=== PATIENT | female | born 1985 | race Caucasian/White ===

== ENCOUNTER 2016-05-23 06:02 | Emergency (ER) | payer OTHER ==
[2016-05-23 06:19] VITALS: BP 115/74; TEMP 98.7; BMI 29.2
[2016-05-23 06:40] LABS: URINE APPEARANCE CLOUDY; URINE BILIRUBIN NEGATIVE (NEGATIVE); URINE COLOR LT. YELLOW; URINE GLUCOSE (UA) NEGATIVE (NEGATIVE); URINE KETONE NEGATIVE (NEGATIVE); URINE LEUK ESTERASE NEGATIVE (NEGATIVE); URINE NITRITE NEGATIVE (NEGATIVE); URINE UROBILINOGEN 0.2 E.U/dl E.U./dl (0.2-1.0)
[2016-05-23 06:50] LABS: URINE BLOOD 3+ (NEGATIVE); URINE PROTEIN 2+ (NEGATIVE)
--- NOTE | 2016-05-23 08:10 | PDOC ---
History of Present Illness - General Chief Complaint: Vaginal Sxs Stated Complaint: VAGINAL PAIN Time Seen by Provider: 05/23/16 07:54 History Source: Patient Exam Limitations: No Limitations - History of Present Illness Initial Comments: CHIEF COMPLAINT: 30 y/o afebrile female with no significant PMH c/o dysuria, urinary frequency and vaginal discharge for the past 2 days. HISTORY OF PRESENT ILLNESS: The patient also admits to hematuria and states she 's had a faint yellow vaginal discharge. She also admits to lower abdominal pain and some back pain as well. She denies f/c, n/v/d, CP, SOB. Vital signs on arrival are within normal limits. REVIEW OF SYSTEMS: GENERAL/CONSTITUTIONAL: No fever/chills. No weakness. No weight change. HEAD, EYES, EARS, NOSE AND THROAT: No change in vision. No ear pain or discharge. No sore throat. CARDIOVASCULAR: No chest pain or shortness of breath. RESPIRATORY: No cough, wheezing, or hemoptysis. GASTROINTESTINAL: +abd pain. No nausea, vomiting, diarrhea. GENITOURINARY: +dysuria, hematuria, increased urinary frequency. + yellow vaginal discharge. MUSCULOSKELETAL: No joint or muscle swelling or pain. No neck pain. +back pain SKIN: No rash or easy bruising. NEUROLOGIC: No headache, vertigo, loss of consciousness, or loss of sensation. PHYSICAL EXAM: GENERAL: The patient is awake, alert, and fully oriented, in no acute distress. She appears uncomfortable. HEAD: Normal with no signs of trauma. ENT: Pupils equal, round and reactive to light, extraocular movements intact, sclera anicteric, conjunctiva clear. Neck supple. LUNGS: Clear to auscultation bilaterally. Normal excursion. No respiratory distress or use of accessory muscles. CV: RRR, S1/S2, no MRG. Cap refill < 2 sec. ABDOMEN: Soft, non-distended, suprapubic and left flank TTP. BACK: Left CVA TTP. VAGINAL: Normal vaginal exam without any abnormal discharge or bleeding. No lesions. Os closed. EXTREMITIES: Normal range of motion, no edema. NEUROLOGICAL: Normal speech, normal gait. CN II-XII grossly intact. PSYCH: Normal mood, normal affect. SKIN: Warm, dry, normal turgor, no rashes or lesions noted. Past History - Past Medical History Allergies/Adverse Reactions: Allergies Allergy/AdvReac Type Severity Reaction Status Date / Time No Known Allergies Allergy Verified 05/23/16 06:18 Home Medications: Ambulatory Orders Ibuprofen 800 mg PO TID #20 tablet 05/23/16 Asthma: No Cancer: No Cardiac Disorders: No Diabetes: No HTN: No Seizures: No Thyroid Disease: No - Surgical History Abdominal Surgery: Yes - Reproductive History (#): 3 Para: 2 Cervical CA: No Dysfunctional Uterine Bleeding: No Ectopic : No Endometrial CA: No Polycystic Ovaries: No Therapeutic (s) & number: No Tubal Ligation: No Spontaneous : 0 - Immunization History Immunization Up to Date: Yes - Psycho/Social/Smoking Cessation Hx Suicidal Ideation: No Smoking History: Never smoked Have you smoked in the past 12 months: No Information on smoking cessation initiated: No Hx Alcohol Use: No Drug/Substance Use Hx: No Substance Use Type: None Hx Substance Use Treatment: No *Physical Exam - Vital Signs Last Vital Signs Temp Pulse Resp BP Pulse Ox 98.7 F 85 20 115/74 98 05/23/16 06:18 05/23/16 06:18 05/23/16 06:18 05/23/16 06:18 05/23/16 06:18 ED Treatment Course - LABORATORY CBC & Chemistry Diagram: 05/23/16 09:30 05/23/16 09:30 - ADDITIONAL ORDERS Additional order review: Laboratory Results 05/23/16 06:25 Urine Color Lt. yellow Urine Appearance Cloudy Urine pH 6.0 D Ur Specific Ehrenberg >= 1.030 Urine Protein 2+ H Urine Glucose (UA) Negative Urine Ketones Negative Urine Blood 3+ H Urine Nitrite Negative Urine Bilirubin Negative Urine Urobilinogen 0.2 e.u/dl Ur Leukocyte Esterase Negative Urine HCG, Qual Negative Medical Decision Making - Medical Decision Making A/P: 30 y/o afebrile female with UTI vs kidney stone vs pyelo. Plan is as follows: 1. UA/hcg 2. labs 3. IV fluids 4. IV toradol 5. Renal ultrasound UA with 2+ blood. Labs unremarkable No sign of UTI Vaginal exam unremarkable The patient states she does feel better. Renal Ultrasound IMPRESSION: No evidence of nephrolithiasis, hydronephrosis or acute pathology. Will discharge to home with rx for ibuprofen. Suggested she drink plenty of water and cranberry juice. Instructed her that if her urine culture comes back positive we will call her out an antibiotic. Pt instructed to return to the ER with any worsening or concerning symptoms. The patient verbalizes understanding of all instructions, has no further questions and is awaiting discharge. *DC/Admit/Observation/Transfer Diagnosis at time of Disposition: Abdominal pain Qualifiers: Abdominal location: generalized Qualified Code(s): R10.84 - Generalized abdominal pain - Discharge Dispostion Disposition: HOME Condition at time of disposition: Improved - Referrals Referrals: Brett Woodson MD [Staff Physician] - Call tomorrow - Patient Instructions Printed Discharge Instructions: DI for Abdominal Pain-Adult Additional Instructions: Discharge Instructions: -If your urine culture comes back positive we will call you out an antibiotic -Take 600mg of Ibuprofen every 6 hours with food for pain -Drink plenty of water and cranberry juice -Follow up with your doctor within 1 week -Return to the ER with any worsening or concerning symptoms Print Language: SINHALA
[2016-05-23] MEDS ORDERED: SODIUM CHLORIDE 1,000 ML IV STA (08:49)
[2016-05-23] MEDS ORDERED: KETOROLAC TROMETHAMINE 30 MG/1 ML VIAL IVPUSH ONE (08:49)
[2016-05-23] MEDS ORDERED: KETOROLAC TROMETHAMINE 30 MG/1 ML VIAL ONE (09:08)
[2016-05-23 10:05] LABS: BASOPHIL 0.6 % (0-2.0); EOSINOPHIL 1.1 % (0-4.5); MCH 30.5 pg (25.7-33.7); MCHC 33.6 g/dl (32.0-36.0); MEAN CELL VOLUME 90.8 fl (80-96); MEAN PLT VOLUME 9.1 fl (7.5-11.1); NEUTROPHILS 67.8 % (42.8-82.8); PLATELET COUNT 216 K/MM3 (134-434); RDW 12.8 % (11.6-15.6); WHITE BLOOD COUNT 10.2 K/mm3 (4.0-10.0)
[2016-05-23 10:14] LABS: ALBUMIN 4.1 g/dl (3.4-5.0); ANION GAP 7 (8-16); BILIRUBIN,TOTAL 0.6 mg/dL (0.2-1.0); CALCIUM 8.5 mg/dL (8.5-10.1); CO2 25 mmol/L (21-32); CREATININE 0.4 mg/dL (0.55-1.02); GLUCOSE,RANDOM 90 mg/dL (74-106); SGOT/AST 21 U/L (15-37); SGPT/ALT 30 U/L (12-78); TOT PROT 7.7 g/dl (6.4-8.2)
[2016-05-23 10:15] LABS: ALK PHOS 97 U/L (45-117)
[2016-05-23 12:35] VITALS: PULSE 68
== END 2016-05-23 12:35 | disposition home or self-care (01) ==
LOC: JER 06:02
PROC: 3E0333Z Introduction of Anti-inflammatory into Peripheral Vein, Percutaneous Approach (ICD-10-PCS; principal; 2016-05-23)
PROC: 3E0337Z Introduction of Electrolytic and Water Balance Substance into Peripheral Vein, Percutaneous Approach (ICD-10-PCS; 2016-05-23)
DX: R10.84 Generalized abdominal pain (principal)
CPT/HCPCS: 36415; 76775-TC; 80053; 81003; 81015; 84703; 85025; 87086; 96361; 96374; 99283-25

== ENCOUNTER 2017-01-22 19:34 | Emergency (ER) | payer OTHER ==
[2017-01-22 19:46] VITALS: BP 111/79; PULSE 53; TEMP 98.4; BMI 25.0
[2017-01-22] MEDS ORDERED: KETOROLAC TROMETHAMINE 30 MG/1 ML VIAL IVPUSH ONE (21:38)
[2017-01-22] MEDS ORDERED: SODIUM CHLORIDE 0.9% 1000 ML INFUS.BAG IV ONE (21:38)
[2017-01-22] MEDS ORDERED: METOCLOPRAMIDE HCL INJECTION 10 MG/2 ML VIAL IVPB ONE (21:38)
--- NOTE | 2017-01-22 21:41 | PDOC ---
History of Present Illness - General Chief Complaint: Headache Stated Complaint: DIZZINESS Time Seen by Provider: 01/22/17 20:57 - History of Present Illness Initial Comments: 01/22/17 21:40 CHIEF COMPLAINT: vomiting, headache HISTORY OF PRESENT ILLNESS: 31 yo F with no PMH presents to ED with headache and vomiting x 1 day. Patient reports that she ate some seafood yesterday and then went for a walk. Afterwards she had 4 episodes of vomiting and she had 12 episodes of vomiting today and states she "feels very weak." PAST MEDICAL HISTORY: Denies past medical history FAMILY HISTORY: Denies SOCIAL HISTORY: Denies tobacco, alcohol, illicit drug use. SURGICAL HISTORY: Denies ALLERGIES: No known drug allergies REVIEW OF SYSTEMS General/Constitutional: Denies fever or chills. Denies weakness. HEENT: Denies change in vision. Denies ear pain or discharge. Denies sore throat. Cardiovascular: Denies chest pain or shortness of breath. Respiratory: Denies cough, wheezing, or hemoptysis. Gastrointestinal: Persistent vomiting x 2 days. Denies diarrhea or constipation. Denies rectal bleeding. Genitourinary: Denies dysuria, frequency, or change in urination. Musculoskeletal: Denies joint or muscle swelling or pain. Denies neck or back pain. Skin and breasts: Denies rash or easy bruising. Neurologic: Headache x 2 days. Denies vertigo, loss of consciousness, or loss of sensation. PHYSICAL EXAM General Appearance: Weak-appearing, appropriately dressed. No apparent distress. HEENT: Photophobia. EOMI, PERRLA. No conjunctival pallor. Respiratory/Chest: Lungs CTAB. Cardiovascular: RRR. S1, S2. Gastrointestinal/Abdominal: Normal bowel sounds. Abdomen soft, non-distended. No tenderness or rebound tenderness. No organomegaly, pulsatile mass, guarding , hernia, hepatomegaly, splenomegaly. Musculoskeletal/Extremities: Normal inspection. FROM of all extremities, normal capillary refill. Pelvis Stable. No CVA tenderness. No tenderness to extremities, pedal edema, swelling, erythema or deformity. Integumentary: Appropriate color, dry, warm. No cyanosis, erythema, jaundice or rash Neurologic: consulting solution manager II-XII intact. Fully oriented, alert. Appropriate mood/affect. Motor strength 5/5. No appreciable EOM palsy, facial droop or sensory deficit. Past History - Past Medical History Allergies/Adverse Reactions: Allergies Allergy/AdvReac Type Severity Reaction Status Date / Time No Known Allergies Allergy Verified 01/22/17 23:22 Home Medications: Ambulatory Orders Ibuprofen 800 mg PO TID #20 tablet 05/23/16 Ondansetron [Zofran *Odt*] 8 mg SL TID #21 od.tablet 01/23/17 Asthma: No Cancer: No Cardiac Disorders: No Diabetes: No HTN: No Seizures: No Thyroid Disease: No - Surgical History Abdominal Surgery: Yes - Reproductive History (#): 3 Para: 2 Cervical CA: No Dysfunctional Uterine Bleeding: No Ectopic : No Endometrial CA: No Polycystic Ovaries: No Therapeutic (s) & number: No Tubal Ligation: No Spontaneous : 0 - Immunization History Immunization Up to Date: Yes - Psycho/Social/Smoking Cessation Hx Suicidal Ideation: No Smoking History: Never smoked Have you smoked in the past 12 months: No Information on smoking cessation initiated: No Hx Alcohol Use: No Drug/Substance Use Hx: No Substance Use Type: None Hx Substance Use Treatment: No *Physical Exam - Vital Signs Last Vital Signs Temp Pulse Resp BP Pulse Ox 98.4 F 53 L 19 111/79 100 01/22/17 19:43 01/22/17 19:43 01/22/17 19:43 01/22/17 19:43 01/22/17 19:43 ED Treatment Course - LABORATORY CBC & Chemistry Diagram: 01/22/17 22:41 01/22/17 22:41 Medical Decision Making - Medical Decision Making 01/22/17 23:23 31 yo F with no PMH presents to ED with headache and vomiting x 1 day. -CBC, CMP, lipase -UA, UCx, Upreg -IVF, Toradol, Benadryl, Reglan Labs unremarkable. *DC/Admit/Observation/Transfer Diagnosis at time of Disposition: Headache Qualifiers: Headache type: unspecified Headache chronicity pattern: unspecified pattern Intractability: not intractable Qualified Code(s): R51 - Headache Vomiting Qualifiers: Vomiting type: unspecified Vomiting Intractability: non-intractable Nausea presence: with nausea Qualified Code(s): R11.2 - Nausea with vomiting, unspecified - Discharge Dispostion Disposition: HOME Condition at time of disposition: Improved Admit: No - Prescriptions Prescriptions: Ondansetron [Zofran *Odt*] 8 mg SL TID #21 od.tablet - Referrals Referrals: Katelyn Capone MD [Staff Physician] - - Patient Instructions Printed Discharge Instructions: DI for Migraine, DI for Vomiting -- Adult Additional Instructions: Please take medication as prescribed. Follow up with a primary care doctor by the end of the week for continued monitoring. If you experience any sudden, sharp headache, any changes in vision, persistent vomiting, fever, chills, or any new or worsening symptoms, please return to the ER. Por favor, tome la medicacin segn lo prescrito. Siga un mdico de atencin primaria al final de la semana para el seguimiento continuo. Si experimenta alg n dolor de denilson repentino y tin, cualquier cambio en la visin, vmitos persistentes, fiebre, escalofros o cualquier nuevo o empeoramiento de los s ntomas, por favor regrese a la oseas de emergencias.
[2017-01-22] MEDS ORDERED: ONDANSETRON 4 MG/2 ML VIAL IVPB ONE (21:43)
--- NOTE | 2017-01-22 22:26 | PDOC ---
*Physical Exam - Vital Signs Last Vital Signs Temp Pulse Resp BP Pulse Ox 98.4 F 53 L 19 111/79 100 01/22/17 19:43 01/22/17 19:43 01/22/17 19:43 01/22/17 19:43 01/22/17 19:43 ED Treatment Course - LABORATORY CBC & Chemistry Diagram: 01/22/17 22:41 01/22/17 22:41 Medical Decision Making - Medical Decision Making 01/22/17 22:26 agree with care from SAW FILER Mariel *DC/Admit/Observation/Transfer Diagnosis at time of Disposition: Head ache, Vomiting - Discharge Dispostion Disposition: HOME Condition at time of disposition: Improved - Prescriptions Prescriptions: Ondansetron [Zofran *Odt*] 8 mg SL TID #21 od.tablet - Referrals Referrals: Katelyn Capone MD [Staff Physician] - - Patient Instructions Printed Discharge Instructions: DI for Migraine, DI for Vomiting -- Adult Additional Instructions: Please take medication as prescribed. Follow up with a primary care doctor by the end of the week for continued monitoring. If you experience any sudden, sharp headache, any changes in vision, persistent vomiting, fever, chills, or any new or worsening symptoms, please return to the ER. Por favor, tome la medicacin segn lo prescrito. Siga un mdico de atencin primaria al final de la semana para el seguimiento continuo. Si experimenta alg n dolor de denilson repentino y tin, cualquier cambio en la visin, vmitos persistentes, fiebre, escalofros o cualquier nuevo o empeoramiento de los s ntomas, por favor regrese a la oseas de emergencias.
[2017-01-22] MEDS ORDERED: METOCLOPRAMIDE HCL INJECTION 10 MG/2 ML VIAL ONE (22:50)
[2017-01-22] MEDS ORDERED: KETOROLAC TROMETHAMINE 30 MG/1 ML VIAL ONE (22:50)
[2017-01-22] MEDS ORDERED: ONDANSETRON 4 MG/2 ML VIAL ONE (22:51)
[2017-01-22 23:16] LABS: BASOPHIL 0.6 % (0-2.0); EOSINOPHIL 0.4 % (0-4.5); MCH 30.7 pg (25.7-33.7); MEAN CELL VOLUME 90.3 fl (80-96); MEAN PLT VOLUME 9.2 fl (7.5-11.1); NEUTROPHILS 72.4 % (42.8-82.8); PLATELET COUNT 232 K/MM3 (134-434); RDW 13.2 % (11.6-15.6); URINE APPEARANCE SLCLOUDY; URINE BILIRUBIN NEGATIVE (NEGATIVE); URINE BLOOD NEGATIVE (NEGATIVE); URINE COLOR LTYELLOW; URINE GLUCOSE (UA) NEGATIVE (NEGATIVE); URINE KETONE 1+ (NEGATIVE); URINE LEUK ESTERASE NEGATIVE (NEGATIVE); URINE NITRITE NEGATIVE (NEGATIVE); URINE PROTEIN NEGATIVE (NEGATIVE); URINE UROBILINOGEN NEGATIVE mg/dL (0.2-1.0)
[2017-01-22 23:44] LABS: ALK PHOS 82 U/L (45-117); ANION GAP 10 (8-16); BILIRUBIN,TOTAL 0.5 mg/dL (0.2-1.0); CALCIUM 8.9 mg/dL (8.5-10.1); CO2 23 mmol/L (21-32); CREATININE 0.4 mg/dL (0.55-1.02); GLUCOSE,RANDOM 101 mg/dL (74-106); SGPT/ALT 48 U/L (12-78); TOT PROT 7.3 g/dl (6.4-8.2)
[2017-01-22] MEDS ORDERED: SODIUM CHLORIDE 1,000 ML IV STA (23:45)
[2017-01-22 23:49] LABS: SGOT/AST 30 U/L (15-37)
== END 2017-01-23 03:46 | disposition home or self-care (01) ==
LOC: JER 19:34
PROC: 3E0337Z Introduction of Electrolytic and Water Balance Substance into Peripheral Vein, Percutaneous Approach (ICD-10-PCS; principal; 2017-01-22)
PROC: 3E0333Z Introduction of Anti-inflammatory into Peripheral Vein, Percutaneous Approach (ICD-10-PCS; 2017-01-22)
PROC: 3E033GC Introduction of Other Therapeutic Substance into Peripheral Vein, Percutaneous Approach (ICD-10-PCS; 2017-01-22)
PROC: 3E033GC Introduction of Other Therapeutic Substance into Peripheral Vein, Percutaneous Approach (ICD-10-PCS; 2017-01-22)
PROC: 3E033GC Introduction of Other Therapeutic Substance into Peripheral Vein, Percutaneous Approach (ICD-10-PCS; 2017-01-22)
DX: R51 Headache (principal); R11.2 Nausea with vomiting, unspecified
CPT/HCPCS: 36415; 70450-TC; 80053; 81003; 84703; 85025; 87086; 99282-25

== ENCOUNTER 2018-06-03 15:30 | Inpatient (IN) | payer OTHER ==
[2018-06-03] MEDS ORDERED: ELECTROLYTE-148 SOLN 500 ML IV ONE (15:40)
[2018-06-03] MEDS ORDERED: CITRIC ACID/SODIUM CITRATE 30 ML UNIT-DOSE CUP PO ONE (16:10)
[2018-06-03 16:14] VITALS: BMI 25.1
[2018-06-03] MEDS ORDERED: ELECTROLYTE-148 SOLN 1,000 ML IV SCH (16:15)
--- NOTE | 2018-06-03 16:28 | HP ---
Past Medical History - Primary Care Physician PCP:: Lita Dunbar - Admission Chief Complaint: 32 yrs , previous c/sx3 , srom since 9.00AM 06/03/18, onset LP since 10.00 AM. is admitted for repeat c/section & voluntary sterlization History of Present Illness: PNC at , 2 [facility] . 18 lbs wt gain panel 11/04/17 : O Pos,anti JK antibody pos rpr nr, Hbsag neg, Rpr nr, Hiv neg, Rubella immune, Sickle neg, Cf screen neg , gc/ct neg , h/h 13.2/38.8, plt 248, varicella immune 02/27/18 Quantiferon neg, Rpr nr, , h/h 12.6/38.2plt 217, 1 hr [id number]. 05/31/18 gbs neg, gc/ct neg , h/h/13.5/39/5, plt 244 sonograms done by [facility] for growth h/o Lo WAQAR on NTD screen , Genetic counselling done Materna T -21 lo risk AFP last sono on 06/02/18 : 36.4 weeks, anirudh 12.7, Bpp8/8 , ant placenta , efw 6'11" TDAP & Influenza vaccine was taken on 04/01/18 History Source: Patient, Medical Record Limitations to Obtaining History: No Limitations - Past Medical History Pulmonary: Yes: Other (h/o URTI during early pregn rx with ampicillin). No: Asthma Hepatobiliary: No: Hepatitis B Renal/: No: UTI ...: 4 ...Para: 3 (3x c/sections ) ...Term: 3 ...LMP: 09/10/17 ... Weeks Gestation by Dates: 38 ...EDC by Dates: 06/17/18 ...EDC by Sono: 06/16/18 (38 weeks ) Additional OB History: G1 06/26/2006 : primaty c/section 40 wks, 6' indication FTP -- [facility]. G2 11/02/2008 repeat c/s 40 wks 5'8' -- [facility]. G3 03/12/2015 : repeat c/s 38.4 wks 7'15" -- [facility] Heme/Onc: No: Sickle Cell Disease, Sickle Cell Trait Infectious Disease: No: AIDS, HIV, STD's, Tuberculosis Psych: No: Addictions, Anxiety, Bipolar, Depression, Panic, Psychosis, Schizophrenia, Other Endocrine: No: Diabetes Mellitus, Hypothyroidism - Past Surgical History Past Surgical History: Yes: (06/2006, 10/2008, 02/2015 -- c/sections) Hx Myomectomy: No Hx Transabdominal Cerclage: No - Smoking History Smoking history: Never smoked Have you smoked in the past 12 months: No - Alcohol/Substance Use Hx Alcohol Use: No History of Substance Use: reports: None Home Medications - Allergies Allergies/Adverse Reactions: Allergies Allergy/AdvReac Type Severity Reaction Status Date / Time No Known Allergies Allergy Verified 06/03/18 15:59 - Home Medications Home Medications: Ambulatory Orders Ferrous Sulfate [Iron] 325 mg PO DAILY 04/07/18 Pnv No.95/Ferrous Fum/Folic AC [ Formula] 1 each PO DAILY 04/07/18 Physical Exam - Maternity Vital Signs: Selected Entries 06/03/18 16:17 Weight 161 lb Selected Entries 06/03/18 19:50 Temperature 97.5 F L Pulse Rate 68 Blood Pressure 129/73 Constitutional: Yes: Well Nourished, Anxious, Mild Distress HENT: Yes: WNL, Normocephalic Neck: Yes: WNL Cardiovascular: Yes: WNL, Regular Rate and Rhythm Lungs: Clear to auscultation Breast(s): Yes: WNL - Abdominal Exam/OB Fundal Height: 38 Number of Fetuses: Single Presentation: Vertex Contractions: Yes Regularity: Regular (3-5 min) Intensity: Mild/Mod Monitor Mode: External Heart Rate (range): 140 Heart Rate Location: [facility] Category: I Accelerations: Uniform Decelerations: None - Vaginal Exam/OB Vaginal Bleediing: No Speculum Exam: Yes Dilatation (cm): close Effacement (%): 0 Amniotic Membrane Status: Ruptured Nitrazine Test: Positive Amniotic Fluid: Yes: Clear Presentation: Vertex/Position Station: -3 - Physical Exam Musculoskeletal: Yes: WNL Extremities: Yes: WNL. No: Calf Tenderness Edema: Yes Edema: LLE: 1+, RLE: 1+ Integumentary: Yes: Incision (pfannensteil scar) Deep Tendon Reflex Grade: Normal +2 ...Motor Strength: WNL Psychiatric: Yes: WNL, Alert, Oriented - Labs Lab Results: Laboratory Tests 06/03/18 06/03/18 16:00 16:00 WBC 8.2 Hgb 13.4 Hct 38.3 Plt Count 255 PT with INR 10.70 INR 0.91 Laboratory Tests 06/03/18 06/03/18 06/03/18 16:00 16:00 16:00 PT with INR 10.70 INR 0.91 PTT (Actin FS) 26.8 Sodium 138 Potassium 4.1 Chloride 107 Carbon Dioxide 19 L BUN 9 Creatinine 0.4 L Random Glucose 72 L Calcium 8.6 Blood Type O POSITIVE Antibody Screen Negative Hemorrhage Risk Assessment - Risk Factors Medium Risk Factors: Yes: Prior , uterine surgery,or multiple laparotomies Risk Score: 1 Risk Level: Medium Risk Problem List - Problems (1) with 38 completed weeks gestation Code(s): Z3A.38 - 38 WEEKS GESTATION OF (2) SROM (spontaneous rupture of membranes) Code(s): VKH6894 - (3) Labor established Code(s): DTG6795 - (4) Previous section Code(s): Z98.891 - HISTORY OF UTERINE SCAR FROM PREVIOUS SURGERY (5) Multiparity Code(s): Z64.1 - PROBLEMS RELATED TO MULTIPARITY Assessment/Plan 32 yrs , previous c/sx 3 , 38 weeks srom, in labor , multiparity , requests for repeat c/section. Plan Repeat c/section & BTL
[2018-06-03 16:29] LABS: BASO % 0.7 % (0-2.0); EOS % 0.5 % (0-4.5); HEMATOCRIT 38.3 % (32.4-45.2); HEMOGLOBIN 13.4 GM/dL (10.7-15.3); LYMPH % 21.6 % (8-40); MCH 30.1 pg (25.7-33.7); MCHC 34.9 g/dl (32.0-36.0); MEAN CELL VOLUME 86.4 fl (80-96); MONO % 4.9 % (3.8-10.2); NEUT % 72.3 % (42.8-82.8); PLATELET COUNT 255 K/MM3 (134-434); RBC 4.43 M/mm3 (3.60-5.2); RDW 14.9 % (11.6-15.6); WHITE BLOOD COUNT 8.2 K/mm3 (4.0-10.0)
[2018-06-03 16:40] LABS: INR 0.91 (0.83-1.09); PROTHROMBIN TIME (PATIENT) 10.7 SEC (9.7-13.0)
[2018-06-03 16:43] LABS: ACTIVATED PTT 26.8 SECONDS (25.2-36.5)
[2018-06-03] MEDS ORDERED: morphine SULFATE/Preservative Free 0.5 MG/ML (1cc Syringe) ONE (18:18)
[2018-06-03] MEDS ORDERED: OXYTOCIN 20 UNITS in 0.9% NS 40 UNIT/2,000 ML INFUS.BAG IV ONE (18:26)
[2018-06-03 18:40] LABS: ANION GAP 12 MMOL/L (8-16); BLOOD UREA NITROGEN 9 mg/dL (7-18); CALCIUM 8.6 mg/dL (8.5-10.1); CHLORIDE 107 mmol/L (98-107); CO2 19 mmol/L (21-32); CREATININE 0.4 mg/dL (0.55-1.3); GLUCOSE,RANDOM 72 mg/dL (74-106); POTASSIUM 4.1 mmol/L (3.5-5.1); SODIUM 138 mmol/L (136-145)
[2018-06-03] MEDS ORDERED: ACETAMINOPHEN 325 MG TABLET (FP) PO PRN (18:41)
[2018-06-03] MEDS ORDERED: ONDANSETRON 4 MG/2 ML VIAL IVPUSH PRN (18:41)
[2018-06-03] MEDS: OXYTOCIN 20 UNITS in 0.9% NS 20 UNIT/1,000 ML INFUS.BAG IV SCH (18:46)
[2018-06-03 19:26] LABS: ARTERIAL BLD GAS O2 SATURATION 30.6 % (90-98.9); ARTERIAL BLOOD GAS BASE EXCESS 0.6 meq/l (-2-2); ARTERIAL BLOOD GAS PCO2 48.2 mmHg (35-45); ARTERIAL BLOOD GAS PO2 17.8 mmHg (80-100); ARTERIAL BLOOD GAS pH 7.36 (7.35-7.45)
[2018-06-03 19:35] LABS: VENOUS PC02 38.4 mmHg (38-52); VENOUS PH 7.41 (7.32-7.42); VENOUS PO2 27.8 mmHg (28-48)
[2018-06-03] MEDS ORDERED: ceFAZolin SODIUM 1 GM VIAL ONE (19:49)
[2018-06-03] MEDS ORDERED: METHYLERGONOVINE MALEATE 0.2 MG/1 ML AMP IM PRN (19:55)
[2018-06-03] MEDS ORDERED: SENNOSIDES/DOCUSATE COMBO (SENNA PLUS) TABLET (UD) PO PRN (19:55)
--- NOTE | 2018-06-03 20:29 | OP ---
Operative Note - Note: Operative Date: 06/03/18 Pre-Operative Diagnosis: 38.2 weeks previous c/section x3 , Multiparity, Voluntory sterlization , srom , in labor Operation: Repeat c/section, Bilteral Tubal ligation Findings: t/o/b 6.45 pm, baby boy, 9/9 , wt 7'3" , ht 19" both tubes normal, tied , cut by modified Quinn methods both ovaries normal. Dr Ephraim del castillo Knot Cutter present in the OR Surgeon: Lita Dunbar Heavy Equipment Rental Manager: Estuardo Jean Anesthesiologist/ORACLE ERP ARCHITECT: Morro Coleman Anesthesia: Spinal Specimens Removed: cord segment for cord blood gas. cord blood. placenta. Portion of Rt Tube. Portion of Lt Tube Estimated Blood Loss (mls): 500 Drains, Volume Out (mls): 100 (cloud,output , graeme color ) Fluid Volume Replaced (mls): 1,700 (ancef 1 gm ivpb prior to incision ) Operative Report Dictated: Yes
--- NOTE | 2018-06-03 20:50 | PN ---
Delivery - Delivery Section: Repeat, Low Flap Transverse (& Bilateral Tubal Ligation) Type of Anesthesia: Spinal EBL (cc): 500 (cloud out put 100 ml graeme color ) Delivery, Single - Stages of Labor Date 1st Stage Initiatied: 06/03/18 Time 1st Stage Initiated: 10:00 Date of Delivery: 06/03/18 Time of Delivery: 18:45 Date Placenta Delivered: 06/03/18 Time Placenta Delivered: 18:46 Placenta: Yes: Manual Removal, Uterine Exploration - Condition of Histology Technologist/Fish Fryer Present: Yes Name: Ephraim Canela Gender: Male Position: Right, OT Total Hours ROM (Hrs/Mins): 9 hrs 46 min - 1 Minute Total Score: 9 5 Minutes Total Score: 9 - [place] Feeding Plan Initial Plan: Exclusive throughout hospitalization Remarks - Remarks Remarks: 32 yrs , previous c/section x3 , admitted due to srom since 9.00AM , & Onset LP since 10.00 AM. Gbs neg. PNC at [address] [place] [id number] INDICATION : 38.2 weeks previous c/sections x3, srom , in labor, multiparity, voluntary sterilization Intraop course uneventful
[2018-06-04] MEDS ORDERED: CEFAZOLIN 1 GM/D5W 1 GM/50 ML BAG ONE (02:10)
[2018-06-04] MEDS: CEFAZOLIN 1 GM/D5W 1 GM/50 ML BAG IVPB SCH ×3 (02:15→17:47)
[2018-06-04] MEDS ORDERED: OXYTOCIN 20 UNITS in 0.9% NS 20 UNIT/1,000 ML INFUS.BAG IV ONE (02:15)
[2018-06-04 06:00] LABS: BASO % 0.7 % (0-2.0); EOS % 0.5 % (0-4.5); HEMATOCRIT 32.1 % (32.4-45.2); HEMOGLOBIN 11.3 GM/dL (10.7-15.3); LYMPH % 18.8 % (8-40); MCH 30.8 pg (25.7-33.7); MCHC 35.3 g/dl (32.0-36.0); MEAN CELL VOLUME 87.4 fl (80-96); MONO % 5.3 % (3.8-10.2); NEUT % 74.7 % (42.8-82.8); PLATELET COUNT 177 K/MM3 (134-434); RBC 3.68 M/mm3 (3.60-5.2); RDW 14.4 % (11.6-15.6); WHITE BLOOD COUNT 6.8 K/mm3 (4.0-10.0)
[2018-06-04] MEDS ORDERED: IBUPROFEN 800 MG/8 ML IJ IVPB ONE ×2 (06:01)
--- NOTE | 2018-06-04 06:13 | PN ---
Post Progress Note - Subjective Subjective: c/o pain /10 Post Day: 1 Type of Delivery: Repeat C/S Vital Signs: Vital Signs Temperature 97.7 F 06/04/18 05:00 Pulse Rate 82 06/04/18 04:00 Respiratory Rate 20 06/04/18 04:00 Blood Pressure 104/62 06/04/18 04:00 O2 Sat by Pulse Oximetry (%) 100 06/03/18 21:05 Breast Exam: Yes: Soft, Other (plans to BF ). No: Engorged Uterus: Yes: Fundus Firm, Fundus below umbilicus, Non-tender Incision: Yes: Dressing dry and intact. No: Redness, Oozing Abdomen/GI: Yes: Abdomen soft (bs active ), Tolerating PO (clear fluid ). No: Abdominal Distention, Tender, Passing flatus Lochia: Yes: Rubra Lochia, amount: Small Extremities: Yes: Calves non-tender (scd in situ ) Perineum: Yes: Intact Activity: Other (pt not oob , cloud in situ) - Labs Labs: CBC WBC 6.8 K/mm3 (4.0-10.0) 06/04/18 05:53 RBC 3.68 M/mm3 (3.60-5.2) 06/04/18 05:53 Hgb 11.3 GM/dL (10.7-15.3) 06/04/18 05:53 Hct 32.1 % (32.4-45.2) L D 06/04/18 05:53 MCV 87.4 fl (80-96) 06/04/18 05:53 MCH 30.8 pg (25.7-33.7) 06/04/18 05:53 MCHC 35.3 g/dl (32.0-36.0) 06/04/18 05:53 RDW 14.4 % (11.6-15.6) 06/04/18 05:53 Plt Count 177 K/MM3 (134-434) D 06/04/18 05:53 MPV 8.0 fl (7.5-11.1) D 06/04/18 05:53 Absolute Neuts (auto) 5.1 K/mm3 (1.5-8.0) 06/04/18 05:53 Neutrophils % 74.7 % (42.8-82.8) 06/04/18 05:53 Lymphocytes % 18.8 % (8-40) 06/04/18 05:53 Monocytes % 5.3 % (3.8-10.2) 06/04/18 05:53 Eosinophils % 0.5 % (0-4.5) 06/04/18 05:53 Basophils % 0.7 % (0-2.0) 06/04/18 05:53 Nucleated RBC % 0 % (0-0) 06/04/18 05:53 Other Findings, Remarks: urine out put 350 ml RS CTA Problem List - Problems (1) with 38 completed weeks gestation Code(s): Z3A.38 - 38 WEEKS GESTATION OF (2) SROM (spontaneous rupture of membranes) Code(s): EII5794 - (3) Labor established Code(s): BDZ6778 - (4) Previous section Code(s): Z98.891 - HISTORY OF UTERINE SCAR FROM PREVIOUS SURGERY (5) Multiparity Code(s): Z64.1 - PROBLEMS RELATED TO MULTIPARITY (6) Delivery by emergency section Code(s): O82 - ENCOUNTER FOR DELIVERY WITHOUT INDICATION (7) Encounter for care after planned out of hospital delivery Code(s): Z39.2 - ENCOUNTER FOR ROUTINE FOLLOW-UP Assessment/Plan pt stable s/p Repeat c/s BTL Plan d/c colud, encourage ambulation, deep breathing, po fluids post op cbc pending
[2018-06-04] MEDS: IBUPROFEN 800 MG/8 ML IJ IVPB PRN ×2 (06:15→14:11)
--- NOTE | 2018-06-04 07:02 | OP ---
DATE OF OPERATION: 06/03/2018 PREOPERATIVE DIAGNOSIS: 38.2 weeks, previous section x3, multiparity, voluntary sterilization. OPERATION DONE: Repeat low flap transverse section and bilateral tubal ligation. SURGEON: Lita Dunbar M.D. TEST DRIVER SURGEON: Jasmyne Allen ANESTHESIOLOGIST: Morro Coleman M.D. TELEGRAPH OFFICE MANAGER: Ephraim Canela M.D. ANESTHESIA: Spinal. FINDINGS: This is a 32-year-old 4, para 3-0-0-3, 38.2 weeks, EDC on July 17, has a history of ruptured membranes at 9 o'clock, Nitrazine positive, is evette between 3 to 5 minutes and cervix is still closed, vertex -3 station. heart tracing category 1. DESCRIPTION OF PROCEDURE: Patient was taken to the operating room table. Before that Paz catheter was placed. Abdomen was shaved and prepped, and she had TEDs and SCD stockings given. Spinal anesthesia was given. She was placed in supine position. Abdomen was prepped and draped in the usual manner. Pfannenstiel incision was made through the previous scar. The skin, subcutaneous tissue, scar tissue, anterior rectus sheath was incised transversely. Bleeding points were clamped and cauterized. Rectus muscle was from the rectus sheath, and parietal peritoneum was opened vertically. Lower flap of peritoneum was identified, and it was incised transversely. There was a lot of edema in the lower segment, and lower segment was thin, lower segment was incised transversely. Amniotic fluid was clear. Baby was delivered from ROT position at 6:45 p.m., and cord was clamped, cut, immediate oral and nasal suction was done. Baby's Apgars were 9 and 9, and baby weight is 7 pounds 3 ounces, Dr. Ephraim Canela was in the OR. Then cord segment was sent for the cord blood gases, and cord blood was collected. Placenta was removed completely with membranes, and then the uterine cavity was cleaned. Uterine incision was closed in 2 layers, first layer was a continuous locking with the Biosyn 0 suture, second layer was a continuous intermittent locking with the Biosyn 0 suture. Hemostasis was verified, and the peritoneum was closed with Biosyn 0 suture also. Then both the tubes were identified up to the fimbrial end, then first the right tube then the left tube were held with isthmic ampullary region of the tube, and it was doubly ligated with a plain 0 catgut and the segment of the tube were both ligated, cut and sent for pathological examination, and endosalpinx was cauterized. Hemostasis was noted. Both the tubes, hemostasis was okay, and ovaries were normal. Sponge, instrument, needle counts were correct, and then closure of the abdomen was done. Parietal peritoneum was closed with the Vicryl 0 suture. Hemostasis was checked underneath the rectus sheath flaps and the muscles were approximated together with interrupted Vicryl suture. Then anterior rectus sheath was mobilized from underneath the scar, and then anterior rectus sheath from the skin scar mobilization was done. Anterior rectus sheath was closed with the Vicryl 0 suture. Irrigation was done, subcutaneous tissue hemostasis was noted, then subcutaneous tissue was approximated with the Biosyn 0 suture. Interrupted sutures were used, and the skin was approximated with lexii. Patient tolerated procedure well, and she was transferred to the recovery room in stable condition. Estimated blood loss was 500 mL, and urine output intraoperatively was 100 mL. It was graeme colored, and she received 1 g of IV Ancef intraoperatively prior to the incision. Dominique [id number]
[2018-06-04] MEDS ORDERED: oxyCODONE HCL 5 MG TABLET PO PRN (10:00)
--- NOTE | 2018-06-04 10:02 | PN ---
Progress Note (short form) - Note Progress Note: Post op day#1.S/P C Section under spinal anesthesia with duramorph uneventful.Patient stable and c/o some pain for which she is on medication.No any anesthesia related problem.Patient DC from the anesthesia care.
[2018-06-04] MEDS: ENOXAPARIN NA (PORCINE) 40 MG/0.4 ML DISP.SYRIN SQ SCH (10:50)
[2018-06-04] MEDS: OXYTOCIN 20 UNITS in 0.9% NS 20 UNIT/1,000 ML INFUS.BAG IV SCH (12:29)
[2018-06-04] MEDS: SIMETHICONE 80 MG TAB.CHEW (FP) PO PRN ×2 (12:33→20:12)
[2018-06-04] MEDS: ACETAMINOPHEN 325 MG TABLET (FP) PO PRN ×2 (13:00→19:36)
[2018-06-04] MEDS: IBUPROFEN 600 MG TABLET (FP) PO PRN (19:35)
[2018-06-04] MEDS ORDERED: BISACODYL 10 MG SUPP.RECT RC PRN (19:55)
[2018-06-05] MEDS: IBUPROFEN 600 MG TABLET (FP) PO PRN ×4 (01:13→22:30)
[2018-06-05] MEDS: ACETAMINOPHEN 325 MG TABLET (FP) PO PRN ×4 (01:13→22:30)
[2018-06-05] MEDS: SIMETHICONE 80 MG TAB.CHEW (FP) PO PRN ×2 (07:55→14:11)
--- NOTE | 2018-06-05 08:04 | PN ---
Post Progress Note Post Day: 2 Type of Delivery: Repeat C/S Vital Signs: Vital Signs Temperature 98.8 F 06/04/18 22:00 Pulse Rate 74 06/04/18 22:00 Respiratory Rate 20 06/04/18 22:00 Blood Pressure 129/72 06/04/18 22:00 O2 Sat by Pulse Oximetry (%) 100 06/03/18 21:05 Uterus: Yes: Fundus @ umbilicus Incision: Yes: Dressing dry and intact Abdomen/GI: Yes: Abdomen soft Lochia: Yes: Rubra Lochia, amount: Small Extremities: Yes: Calves non-tender Perineum: Yes: Intact Activity: Ambulating - Labs Labs: CBC WBC 6.8 K/mm3 (4.0-10.0) 06/04/18 05:53 RBC 3.68 M/mm3 (3.60-5.2) 06/04/18 05:53 Hgb 11.3 GM/dL (10.7-15.3) 06/04/18 05:53 Hct 32.1 % (32.4-45.2) L D 06/04/18 05:53 MCV 87.4 fl (80-96) 06/04/18 05:53 MCH 30.8 pg (25.7-33.7) 06/04/18 05:53 MCHC 35.3 g/dl (32.0-36.0) 06/04/18 05:53 RDW 14.4 % (11.6-15.6) 06/04/18 05:53 Plt Count 177 K/MM3 (134-434) D 06/04/18 05:53 MPV 8.0 fl (7.5-11.1) D 06/04/18 05:53 Absolute Neuts (auto) 5.1 K/mm3 (1.5-8.0) 06/04/18 05:53 Neutrophils % 74.7 % (42.8-82.8) 06/04/18 05:53 Lymphocytes % 18.8 % (8-40) 06/04/18 05:53 Monocytes % 5.3 % (3.8-10.2) 06/04/18 05:53 Eosinophils % 0.5 % (0-4.5) 06/04/18 05:53 Basophils % 0.7 % (0-2.0) 06/04/18 05:53 Nucleated RBC % 0 % (0-0) 06/04/18 05:53 Assessment/Plan 32yo s/p RLTCS, BTL, POD#2 Routine PP care OOB, ambulate Labs reviewed, stable D/C to home POD#3 Jonny Valadez MD
[2018-06-05] MEDS ORDERED: DIPHTH,PERTUSS(ACELL),TET 0.5 ML DISP.SYRIN IM ONE (10:00)
[2018-06-05] MEDS: FERROUS SO4 325 MG TABLET (FP) PO SCH ×2 (10:25→22:30)
[2018-06-05] MEDS: PRENATAL VITAMINS W/ FOLIC ACID TABLET (FP) PO SCH (10:26)
[2018-06-05] MEDS: ENOXAPARIN NA (PORCINE) 40 MG/0.4 ML DISP.SYRIN SQ SCH (10:29)
[2018-06-05] MEDS: oxyCODONE HCL 5 MG TABLET PO PRN (16:23)
[2018-06-06] MEDS: SIMETHICONE 80 MG TAB.CHEW (FP) PO PRN ×3 (02:45→13:47)
[2018-06-06] MEDS: IBUPROFEN 600 MG TABLET (FP) PO PRN ×2 (02:45→10:09)
[2018-06-06] MEDS: ACETAMINOPHEN 325 MG TABLET (FP) PO PRN ×3 (02:46→13:47)
[2018-06-06 07:11] LABS: BASO % 0.5 % (0-2.0); EOS % 3.5 % (0-4.5); HEMATOCRIT 31.7 % (32.4-45.2); HEMOGLOBIN 10.8 GM/dL (10.7-15.3); LYMPH % 31.2 % (8-40); MCH 30.3 pg (25.7-33.7); MCHC 34.1 g/dl (32.0-36.0); MEAN CELL VOLUME 88.9 fl (80-96); MEAN PLT VOLUME 8.5 fl (7.5-11.1); MONO % 4.6 % (3.8-10.2); NEUT % 60.2 % (42.8-82.8); PLATELET COUNT 222 K/MM3 (134-434); RBC 3.56 M/mm3 (3.60-5.2); RDW 14.2 % (11.6-15.6); WHITE BLOOD COUNT 6.4 K/mm3 (4.0-10.0)
--- NOTE | 2018-06-06 07:41 | PN ---
Progress Note (short form) - Note Progress Note: ppd 2 no c/o ,no excess vaginal bleeding voids ok CBC, BMP 06/06/18 06:00 06/03/18 16:00 Last Vital Signs Temp Pulse Resp BP Pulse Ox 98.0 F 69 20 126/80 100 06/05/18 22:00 06/05/18 22:00 06/05/18 22:00 06/05/18 22:00 06/03/18 21:05 abdomen soft, no distension, no cva uterus firm, non tender lochia mild no calf tenderness plan d/c home, rtc 4 weeks
[2018-06-06] MEDS: oxyCODONE HCL 5 MG TABLET PO PRN ×2 (08:18→13:46)
[2018-06-06] MEDS: ENOXAPARIN NA (PORCINE) 40 MG/0.4 ML DISP.SYRIN SQ SCH (10:05)
[2018-06-06] MEDS: FERROUS SO4 325 MG TABLET (FP) PO SCH (10:05)
[2018-06-06] MEDS: PRENATAL VITAMINS W/ FOLIC ACID TABLET (FP) PO SCH (10:05)
[2018-06-06 11:45] VITALS: BP 114/75; PULSE 57; TEMP 97.8
--- NOTE | 2018-06-06 12:44 | DS ---
Physical Exam-OPERATION SHIFT SUPERVISOR Vital Signs: Vital Signs Temperature 97.8 F 06/06/18 10:00 Pulse Rate 57 L 06/06/18 10:00 Respiratory Rate 20 06/06/18 10:00 Blood Pressure 114/75 06/06/18 10:00 O2 Sat by Pulse Oximetry (%) 100 06/03/18 21:05 Constitutional: Yes: Well Nourished, Other (painscale 08/27) Eyes: Yes: WNL HENT: Yes: WNL, Normocephalic Neck: Yes: WNL Cardiovascular: Yes: WNL, Bruit Respiratory: Yes: WNL, CTA Bilaterally Gastrointestinal: Yes: WNL, Normal Bowel Sounds, Other (bm done). No: Distention ...Rectal Exam: Yes: WNL Renal/: Yes: WNL, Other (voiding without difficulty) ....Post : Yes: Uterus firm, Uterus non-tender, Slight lochia serosa Breast(s): Yes: WNL, Other (Bf, breast not engorged) Extremities: Yes: WNL. No: Calf Tenderness Edema: LLE: Trace, RLE: Trace Wound/Incision: Yes: Clean/Dry, Garrett Intact, Open to air. 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 Gbs neg. PNC at [address] [place] [address] INDICATION : 38.2 weeks previous c/sections x3, srom , in labor, multiparity, voluntary sterilization Intraop course uneventful . pt post op course uneventful pt post op instructions were given. she will rtc for lexii removal Discharge Summary Reason For Visit: REP Current Active Problems Encounter for care after planned out of hospital delivery (Acute) Labor established (Acute) Multiparity (Acute) with 38 completed weeks gestation (Acute) Previous section (Acute) SROM (spontaneous rupture of membranes) (Acute) Condition: Stable - Instructions Diet, Activity, Other Instructions: Post Instructions DIET: Continue good diet high in protein, calcium, and iron rich foods. Drink at least eight (8) glasses of water daily in addition to other fluids. ___ Regular diet MEDICATIONS: Continue vitamins and iron as previously directed. Motrin and Tylenol may be taken for minor discomfort. ACTIVITY: Mild to moderate exercise may be started in two (2) weeks. Take frequent rest periods. Resume normal activity after six (6) week check up. WOUND CARE OF OPERATIVE SITE: Continue use of perineal bottle until vaginal discharge stops. Keep area clean. Shower daily. Keep abdominal wound dry. Report any drainage or redness to physician. Tub baths, tampons and douches are not permitted for [address] Breast feeding & or Bottle feeding BREAST CARE: (For those that are not ): If engorgement occurs: Wear tight fitting bra. Take Tylenol or Motrin for pain. Apply cold packs (ice in bags to each breast ) FAMILY PLANNING: There are many control alternatives to pursue and they should be discussed at your first office visit. You may resume sexual activity after your six (6) week check up. (Remember, is not a contraceptive) NEXT PHYSICIAN APPOINTMENT: Be certain to call for a one (1) week appointment, unless otherwise directed. RTC Saturday for lexii removal Call Clinic or got to Emergency Dept if you have any of the following: Heavy vaginal bleeding Painful urination Leg pain Unusual odor noted to vaginal bleeding High fever Red streaking noted on breast Regular Diet Referrals: Lita Dunbar MD [Staff Physician] - Disposition: HOME - Home Medications Comprehensive Discharge Medication List: Ambulatory Orders Ferrous Sulfate [Iron] 325 mg PO DAILY 04/07/18 Pnv No.95/Ferrous Fum/Folic AC [ Formula] 1 each PO DAILY 04/07/18 Ibuprofen 600 mg PO Q6H PRN #30 tablet 06/04/18 Oxycodone HCl/Acetaminophen [Percocet 5-325 mg Tablet -] 1 - 2 tab PO Q6H PRN # 15 tab MDD 4 06/05/18
--- NOTE | 2018-06-13 20:38 | PATH ---
Surgical Pathology Report Patient Name: MICHAEL ANDERSON Med. Rec. #: [id number] /Age/Gender: 1985 (Age: 32) / F Account: [id number] Location: [facility] OBS/K 9 POLICE OFFICER Taken: 06/03/2018 Received: 06/04/2018 Reported: 06/13/2018 Physicians: Lita Dunbar M.D. Specimen(s) Received A: PLACENTA B: PORTION OF RIGHT FALLOPIAN TUBE C: PORTION OF LEFT FALLOPIAN TUBE Clinical History at 38.1 weeks for repeat Final Diagnosis A. PLACENTA, SECTION: 401 G THIRD TRIMESTER PLACENTA WITH TRIVASCULAR UMBILICAL CORD, FOCAL INTRAPARENCHYMAL HEMORRHAGE (~ 15% OF PLACENTAL SURFACE), AND UNREMARKABLE PLACENTAL MEMBRANES. B. FALLOPIAN TUBE, RIGHT, PARTIAL EXCISION: FULL LUMINAL PORTION OF UNREMARKABLE FALLOPIAN TUBE. C. FALLOPIAN TUBE, LEFT, PARTIAL EXCISION: FULL LUMINAL PORTION OF UNREMARKABLE FALLOPIAN TUBE. Electronically Signed Mariama Willis M.D. Gross Description A. The specimen is received fresh labeled placenta and is a 401 gram, 14.0 x 12.0 x 3.3 cm. placenta with attached membranes and umbilical cord. The attached membranes are elliott, translucent with focal opacities and insert marginally. The umbilical cord measures 15 cm. in length and averages 1 cm. in diameter. The cord inserts eccentrically, 3 cm. to the nearest margin. No true knots or strictures are identified. Cut surface of the umbilical cord reveals 3 vessels. The surface is holloway-blue with minimal fibrin deposition and appropriate caliber vessels. The maternal surface is red-brown and intact. Sectioning reveals a 2.0 cm in greatest dimension hemorrhagic intraparenchymal lesion. The remaining placental parenchyma is red-brown and spongy. Turbine Inspector sections are submitted in 4 cassettes as follows: 1-membrane roll and umbilical cord; 2-lesion; 3-4-full thickness sections of placenta. B. Received in formalin labeled "right fallopian tube," is a 1.2 cm in length portion of fallopian tube. No fimbria are present. The outer surface is elliott-chappell and smooth. Sectioning reveals an unremarkable lumen. Turbine Inspector sections are submitted in one cassette. C. Received in formalin labeled "left fallopian tube," is a 1.4 cm in length portion of fallopian tube. No fimbria are present. The outer surface is elliott-chappell and smooth. Sectioning reveals unremarkable lumen. Turbine Inspector sections are submitted in one cassette. 06/12/2018 [facility]06/12/2018
== END 2018-06-06 15:20 | disposition home or self-care (01) | DRG 540 ==
LOC: JLDR 15:30 → J3W 06-04 08:00
PROVIDERS: ADMIT Obstetrics & Gynecology; ATTEND Obstetrics & Gynecology
PROC: 10D00Z1 Extraction of Products of Conception, Low, Open Approach (ICD-10-PCS; principal; 2018-06-03)
PROC: 0UL70DZ Occlusion of Bilateral Fallopian Tubes with Intraluminal Device, Open Approach (ICD-10-PCS; 2018-06-03)
DX: O34.211 Maternal care for low transverse scar from previous cesarean delivery (principal); Z3A.38 38 weeks gestation of pregnancy; Z37.0 Single live birth; Z30.2 Encounter for sterilization
CPT/HCPCS: 36415; 36600; 80048; 82803; 85025; 85610; 85730; 86593; 86850; 86900; 86901; 88302-TC; 88307-TC; 90715